=== PATIENT | female | born 1950 ===

== ENCOUNTER 2019-02-18 13:46 | Inpatient (IN) | payer MEDICARE, MEDICAID ==
[2019-02-18 13:46] VITALS: BMI 21.4
--- NOTE | 2019-02-18 14:33 | ED PDOC ---
HPI: General Adult Time Seen by Provider: 02/18/19 14:09 Chief Complaint (Nursing): Back Pain Chief Complaint (Provider): Weakness, Dizziness History Per: Patient, Global Commodity Manager (CORINNEMARY diplomatic interpreter/translator # [id number]) History/Exam Limitations: no limitations Onset/Duration Of Symptoms: Sudden Onset Current Symptoms Are (Timing): Better Additional History Per: Family Additional Complaint(s): 68 year old female with diabetes, anxiety, hypothyroid and seizure presents to the ED with family for an evaluation of weakness, dizziness and diaphoresis. Patient was at a back specialist office, in the waiting room with a sudden onset of symptoms. 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 Otherwise, patient denies fever, chills, chest pain, shortness of breath, abdominal pain, vomiting, diarrhea, nausea or urinary symptoms. PMD: Non H Provider Past Medical History Reviewed: Historical Data, Nursing Documentation, Vital Signs Vital Signs: Last Vital Signs Temp 98.9 F 02/18/19 14:00 Pulse 69 02/18/19 14:00 Resp 16 02/18/19 14:00 BP 138/68 02/18/19 14:00 Pulse Ox 98 02/18/19 14:00 Primary Care Provider: [facility] - Medical History PMH: Anxiety, Arthritis, Back Problems (chronic), Depression (ON MEDICATIONS), Diabetes, Gastritis, HTN, Hypercholesterolemia, Hypothyroidism, Osteoporosis, Seizures (EPILEPSY) - Surgical History Surgical History: No Surg Hx - Family History Family History: States: Unknown Family Hx - Social History Current smoker - smoking cessation education provided: No Alcohol: None Drugs: Denies - Immunization History Hx Tetanus Toxoid Vaccination: No Hx Influenza Vaccination: Yes (2013) Hx Pneumococcal Vaccination: No (per pt 06/02/15) - Home Medications Home Medications: Ambulatory Orders Medication Instructions Recorded Divalproex [Depakote] 250 mg PO Q8 09/13/13 Metformin HCl [Metformin] 1,000 mg PO BID 09/13/13 Alendronate [Fosamax] 70 mg PO TU 04/15/16 Atenolol [Tenormin] 50 mg PO DAILY 02/18/19 Cholecalciferol (Vitamin D3) 2,000 unit PO DAILY 02/18/19 [Vitamin D3] Gabapentin [Neurontin] 100 mg PO Q12 02/18/19 Insulin Aspart, Recombinant 3 unit SC ACLD 02/18/19 [Novolog] Insulin Glargine,Hum.rec.anlog 12 unit SC ACB 02/18/19 [Basaglar Kwikpen U-100] Levothyroxine [Synthroid] 88 mcg PO DAILY 02/18/19 Multivitamin [Multi-Vitamin Daily] 1 tab PO DAILY 02/18/19 Sertraline [Zoloft] 50 mg PO DAILY 02/18/19 amLODIPine [Norvasc] 10 mg PO DAILY 02/18/19 carBAMazepine [Tegretol] 200 mg PO Q8 02/18/19 clonazePAM [Klonopin] 0.5 mg PO HS 02/18/19 - Allergies Allergies/Adverse Reactions: Allergies Allergy/AdvReac Type Severity Reaction Status Date / Time No Known Allergies Allergy Verified 02/18/19 14:00 Review of Systems ROS Statement: Except As Marked, All Systems Reviewed And Found Negative Constitutional: Positive for: Sweats, Weakness Cardiovascular: Negative for: Chest Pain Respiratory: Negative for: Cough, Shortness of Breath Gastrointestinal: Negative for: Nausea, Vomiting, Abdominal Pain, Diarrhea Neurological: Positive for: Dizziness. Negative for: Headache Physical Exam - Reviewed Nursing Documentation Reviewed: Yes Vital Signs Reviewed: Yes - Physical Exam Appears: Positive for: Well, Non-toxic, No Acute Distress Head Exam: Positive for: ATRAUMATIC, NORMAL INSPECTION, NORMOCEPHALIC Skin: Positive for: Normal Color, Warm, DRY Eye Exam: Positive for: EOMI, Normal appearance, PERRL ENT: Positive for: Normal ENT Inspection Neck: Positive for: Normal, Painless ROM, Supple. Negative for: Decreased ROM Cardiovascular/Chest: Positive for: Regular Rate, Rhythm. Negative for: Murmur Respiratory: Positive for: Normal Breath Sounds. Negative for: Respiratory Distress Gastrointestinal/Abdominal: Positive for: Normal Exam, Soft. Negative for: Tenderness Back: Positive for: Normal Inspection. Negative for: L CVA Tenderness, R CVA Tenderness Extremity: Positive for: Normal ROM. Negative for: Tenderness, Pedal Edema, Deformity Neurological/Psych: Positive for: Awake, Alert, Normal Tone, Oriented (x3) - Laboratory Results Result Diagrams: 02/18/19 14:25 02/18/19 14:25 - ECG O2 Sat by Pulse Oximetry: 98 (RA) Pulse Ox Interpretation: Normal Medical Decision Making Medical Decision Making: Time: 1423 Plan: hypoglycemia, rule out infection (uti, pneumonia) causing hypoglycemia. pt denies any recent loss of apetite that should cause the low sugar (pt is getting insulin as prescribed by pcp), so unlcear what the source or reason the pt sugar went so low. pt ate full tray of food here and sugar came up. CMP CBC w/ differential Re-evaluation Initial Accucheck: 48 Accucheck recheck: 122 1542 Upon re-evaluation, patient felt better after she ate. According to her chemistry, her sodium level is low. according to prior records (2013) pt NA also low 120s. 1600 reevaluation of pt. family at bedside. Family state her sugar level goes up and down. Otherwise, patient is calm and cooperative 1719 Dr. [facility]onsal[facility] accepted the patient. (Primary doctor does not admit here) pt agreeable to plan. -- Scribe Attestation: Documented by Abdullahi Hazel, acting as a scribe for Jong Rosario MD Provider Scribe Attestation: All medical record entries made by the Scribe were at my direction and personally dictated by me. I have reviewed the chart and agree that the record accurately reflects my personal performance of the history, physical exam, medical decision making, and the department course for this patient. I have also personally directed, reviewed, and agree with the discharge instructions and disposition. Disposition - Clinical Impression Clinical Impression: Hypoglycemia - Patient ED Disposition Is Patient to be Admitted: Yes Counseled Patient/Family Regarding: Studies Performed, Diagnosis - Disposition Disposition Time: 17:00 Condition: STABLE
[2019-02-18 14:41] LABS: BASO % 0.8 % (0.0-2.0); EOS # 0.2 K/uL (0.0-0.7); EOS % 2.5 % (0.0-4.0); HEMOGLOBIN 12.2 g/dL (12.0-16.0); LYMPH # 2.5 K/uL (1.0-4.3); LYMPH % 40.4 % (20.0-40.0); MEAN CELL VOLUME 89.3 fl (81.0-99.0); MEAN CORPUSCULAR HEMOGLOBIN 29.6 pg (27.0-31.0); MEAN CORPUSCULAR HGB CONC 33.2 g/dL (33.0-37.0); MEAN PLATELET VOLUME 8.8 fl (7.2-11.7); MONO # 0.6 K/uL (0.0-0.8); MONO % 10.2 % (0.0-10.0); NEUT # 2.9 K/uL (1.8-7.0); NEUT % 46.1 % (50.0-75.0); RBC 4.11 Mil/uL (3.80-5.20); RED CELL DISTRIBUTION WIDTH 14.8 % (11.5-14.5); WHITE BLOOD COUNT 6.2 K/uL (4.8-10.8)
[2019-02-18 14:47] LABS: ALB/GLOB RATIO 1.6 (1.0-2.1); ALBUMIN 4.7 g/dL (3.5-5.0); ALT/SGPT 32 U/L (9-52); AST/SGOT 24 U/L (14-36); BLOOD UREA NITROGEN 12 mg/dl (7-17); CALCIUM 8.9 mg/dL (8.4-10.2); GFR NON-AFRICAN AMERICAN > 60
[2019-02-18] MEDS ORDERED: Sodium Chloride 0.9% 1,000 ML IV STA (15:20)
[2019-02-18] MEDS ORDERED: Potassium Chloride 20 mEq ER Tab PO ONE ×2 (17:16→19:34)
--- NOTE | 2019-02-18 17:36 | RAD ---
HISTORY: hypoglycemia COMPARISON: None available TECHNIQUE: Chest, one view. FINDINGS: LUNGS: No focal consolidation. Please note that chest x-ray has limited sensitivity for the detection of pulmonary masses. PLEURA: No significant pleural effusion identified. No definite pneumothorax . CARDIOVASCULAR: Heart size appears within normal limits. Atherosclerotic calcification of the aortic knob. OSSEOUS STRUCTURES: No acute osseous abnormality identified. VISUALIZED UPPER ABDOMEN: Unremarkable. OTHER FINDINGS: None. IMPRESSION: No focal consolidation identified.
[2019-02-18 20:05] LABS: URINE BILIRUBIN NEGATIVE (NEGATIVE); URINE CLARITY CLEAR (Clear); URINE COLOR COLORLESS (YELLOW); URINE GLUCOSE (UA) 150 mg/dL (NEGATIVE); URINE LEUKOCYTE ESTERASE NEG Leu/uL (Negative); URINE PROTEIN 30 mg/dL (NEGATIVE); URINE UROBILINOGEN 0.2-1.0 mg/dL (0.2-1.0)
[2019-02-18 20:19] LABS: URINE BLOOD TRACE (NEGATIVE)
[2019-02-18] MEDS: Insulin Lispro (humaLOG) 100 Units/ml Inj SC SCH (20:53)
[2019-02-18] MEDS: Sodium Chloride 0.9% 1,000 ML IV SCH (23:16)
[2019-02-19] MEDS: Divalproex 250 mg DR(BID formulation) PO SCH ×4 (00:03→16:46)
[2019-02-19 05:49] LABS: ALB/GLOB RATIO 1.5 (1.0-2.1); ALBUMIN 3.6 g/dL (3.5-5.0); ALT/SGPT 22 U/L (9-52); AST/SGOT 22 U/L (14-36); BLOOD UREA NITROGEN 10 mg/dl (7-17); CALCIUM 8.5 mg/dL (8.4-10.2); GFR NON-AFRICAN AMERICAN > 60
[2019-02-19] MEDS: Levothyroxine 88 MCG TAB PO SCH (06:54)
[2019-02-19] MEDS: Insulin Lispro (humaLOG) 100 Units/ml Inj SC SCH ×4 (08:18→21:36)
[2019-02-19] MEDS: Cholecalciferol 1,000 INTLU TAB PO SCH (09:39)
[2019-02-19] MEDS: Sodium Chloride 0.9% 1,000 ML IV SCH ×2 (09:40→16:47)
[2019-02-19] MEDS: Multivitamin With Minerals Tab PO SCH (09:40)
[2019-02-19] MEDS ORDERED: Tolvaptan 15 MG TAB PO ONE (11:36)
[2019-02-19] MEDS ORDERED: Insulin Detemir 100 Units/ml Inj SC SCH (12:15)
[2019-02-20] MEDS: Divalproex 250 mg DR(BID formulation) PO SCH ×3 (01:26→16:17)
--- NOTE | 2019-02-20 04:22 | HP ---
HISTORY OF PRESENT ILLNESS: This is a 68-year-old female with history of multiple medical problems who was brought to the emergency room because of low blood sugar. The patient was examined and evaluated in the emergency room and she also was found to be hyponatremic with sodium of 122. Subsequently, the patient was admitted for further management. The patient denied to have any symptoms suggestive of infection. The patient is compliant to her anti-hyperglycemic medication and she denied skipping meals. REVIEW OF SYSTEMS: Other review of system is positive for back pain. ALLERGIES: NO KNOWN ALLERGY. PAST MEDICAL HISTORY: Hypertension, type 2 diabetes mellitus, degenerative spine disease, radiculopathy, hyponatremia. SOCIAL HISTORY: Denied smoking, EtOH or substance abuse. MEDICATIONS: Reviewed and ordered as per MAR. PHYSICAL EXAMINATION: GENERAL: The patient is in bed, not in any cardiopulmonary distress. VITAL SIGNS: Blood pressure 150/74, temperature 97.6, respiratory rate 18, and pulse 71. HEENT: Pupils equal, reactive to light. Normal-appearing mucosa of the conjunctivae, oropharynx and nasal membrane mucosa. NECK: Supple. No JVD. No carotid bruit. No lymph node. No thyromegaly. CHEST AND LUNGS: Bilateral symmetrical expansion. Good air exchange. No rales, no rhonchi. CARDIOVASCULAR SYSTEM: PMI not localized. S1, S2. No additional sounds. ABDOMEN: Normoactive bowel sounds. No tenderness, no organomegaly. No masses. EXTREMITIES: No cyanosis, no clubbing, no edema. CENTRAL NERVOUS SYSTEM: Alert, awake, oriented x2. No neurological deficit could be appreciated. ASSESSMENT: 1. Hypoglycemia likely secondary to sulfonylurea. 2. 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 3. Hypertension. 4. Degenerative spine disease. PLAN: We will stop IV fluid as sodium did not increase. We are giving normal saline and we will give one dose of Tolvaptan. We will do Accu-Checks with sliding scale insulin coverage. Verna Gonsalves MD
[2019-02-20] MEDS: Levothyroxine 88 MCG TAB PO SCH (06:21)
[2019-02-20 07:26] LABS: ALB/GLOB RATIO 1.5 (1.0-2.1); ALBUMIN 3.9 g/dL (3.5-5.0); ALT/SGPT 28 U/L (9-52); AST/SGOT 23 U/L (14-36); BLOOD UREA NITROGEN 16 mg/dl (7-17); CALCIUM 8.7 mg/dL (8.4-10.2); GFR NON-AFRICAN AMERICAN > 60
[2019-02-20] MEDS: Cholecalciferol 1,000 INTLU TAB PO SCH (08:34)
[2019-02-20] MEDS: Multivitamin With Minerals Tab PO SCH (08:39)
[2019-02-20] MEDS: Insulin Lispro (humaLOG) 100 Units/ml Inj SC SCH ×4 (08:42→21:40)
[2019-02-21] MEDS: Divalproex 250 mg DR(BID formulation) PO SCH ×3 (00:42→17:32)
--- NOTE | 2019-02-21 02:17 | PN ---
DATE: 02/20/2019 DAILY PROGRESS NOTE SUBJECTIVE: The patient is seen today, 02/20/2019. Her blood sugar went down to 20 last night. The patient is currently only on sliding scale with no basal insulin. PHYSICAL EXAMINATION: VITAL SIGNS: Blood pressure is 159/67, temperature 98.2, respiratory rate 18, and pulse 71. HEENT: Pupils are equal and reactive to light. Normal-appearing mucosa of the conjunctivae, oropharynx, and nasal membrane mucosa. NECK: Supple. No JVD. No carotid bruits. No lymph node. No thyromegaly. CHEST AND LUNGS: Bilateral symmetrical expansion. Good air exchange. No rales. No rhonchi. CARDIOVASCULAR SYSTEM: PMI not localized. S1 and S2. No additional sounds. ABDOMEN: Normoactive bowel sounds. No tenderness. No organomegaly. No masses. EXTREMITIES: No cyanosis. No clubbing. No edema. CENTRAL NERVOUS SYSTEM: Alert, awake, and oriented x2. No neurological deficits could be appreciated. ASSESSMENT: 1. Hypoglycemia. 2. Hyponatremia. 3. Type 2 diabetes mellitus. 4. Hypertension. PLAN: Continue current medications. Monitor blood sugar. Monitor also sodium, which went up to 130 after one pill of tolvaptan. Verna Gonsalves MD
[2019-02-21] MEDS: Levothyroxine 88 MCG TAB PO SCH (06:17)
[2019-02-21] MEDS: Insulin Lispro (humaLOG) 100 Units/ml Inj SC SCH ×4 (06:30→21:30)
[2019-02-21 07:01] LABS: BLOOD UREA NITROGEN 21 mg/dl (7-17); CALCIUM 8.9 mg/dL (8.4-10.2); GFR NON-AFRICAN AMERICAN > 60
[2019-02-21] MEDS: Multivitamin With Minerals Tab PO SCH (09:01)
[2019-02-21] MEDS: Cholecalciferol 1,000 INTLU TAB PO SCH (09:01)
[2019-02-22] MEDS: Divalproex 250 mg DR(BID formulation) PO SCH ×3 (00:45→17:35)
[2019-02-22 06:47] LABS: ALB/GLOB RATIO 1.6 (1.0-2.1); ALBUMIN 3.9 g/dL (3.5-5.0); ALT/SGPT 31 U/L (9-52); AST/SGOT 26 U/L (14-36); BLOOD UREA NITROGEN 17 mg/dl (7-17); CALCIUM 8.5 mg/dL (8.4-10.2); GFR NON-AFRICAN AMERICAN > 60
[2019-02-22] MEDS: Levothyroxine 88 MCG TAB PO SCH (06:47)
[2019-02-22] MEDS: Insulin Lispro (humaLOG) 100 Units/ml Inj SC SCH ×5 (06:49→21:20)
--- NOTE | 2019-02-22 08:39 | CON ---
DATE: 02/21/2019 ENDOCRINOLOGY CONSULT LOCATION: Room 401. HISTORY OF PRESENT ILLNESS: This is a 68-year-old female with known history of type 2 insulin-requiring diabetes and hypertension, presenting here with symptomatic hypoglycemia with associated progressively worsening dizziness and lightheadedness and generalized body weakness and is now being referred for diabetic evaluation and management. Over the past 48 hours, she actually has had extremes of glycemic fluctuations in the hospital presenting with glucose levels below 20 and developing supervening hyperglycemic accelerations and glucose values over 400 mg/dL. PAST MEDICAL HISTORY: As mentioned above, history of type 2 insulin-requiring diabetes, on a combination of Basaglar given as 12 units at breakfast time with NovoLog given as 3 units at lunch and dinner time daily. She also was taking metformin at 1 gram b.i.d. History of hypothyroidism, on levothyroxine, taken as 88 mcg daily. History of hypertension, on a combination of atenolol and amlodipine medications as given. History of generalized anxiety and depression, on psychotropic medications as noted with also concomitant history of generalized seizures, on Tegretol therapy as noted. History of lumbar disc disease and severe lower back pain with radiculopathy. History of chronic gastritis and irritable bowel syndrome, history of diffuse osteoarthritis with underlying osteoporosis, currently on alendronate therapy as given once a week. FAMILY HISTORY: Positive for diabetes and hypertension. SOCIAL HISTORY: The patient has a supportive family. No known substance use. REVIEW OF SYSTEMS: Admits to generalized body weakness with progressively worsening dizziness and lightheadedness, worse on the day of admission, and she actually appeared at an orthopedic doctor's office when she developed symptomatic hypoglycemia with the glucose level of 48 mg/dL as noted. Also admits to easy fatigability and tiredness with suboptimal energy level and also bifrontal headaches with visual blurring. No chest pains or palpitations or PND. Her oral intake has been variable with suboptimal meal portions as noted. No recent fluctuations in the bowel and/or urinary patterns. PHYSICAL EXAMINATION: GENERAL: Average-built female in no apparent distress. VITAL SIGNS: Blood pressure of 140/80, pulse of 70 beats per minute and regular, temperature 98, and respirations 20. Height is 5 feet and weight is 140 pounds. HEENT: Head normocephalic. Eyes, anicteric with pink conjunctivae. Funduscopy is not possible at this time. Ears, nose, and throat, otherwise, normal. NECK: Supple. Thyroid gland is normal in size. No carotid bruits or any cervical adenopathy. CARDIOPULMONARY: Some adynamic precordium. S1 and S2, rapid and regular. LUNGS: Clear to auscultation. ABDOMEN: Flat and soft with positive bowel sounds. EXTREMITIES: No peripheral edema. Pulses are +2 bilaterally. LABORATORY DATA: Her glucose levels today have ranged from 86 to 259 and 479 mg/dL as noted. Her chemistry showed a BUN of 21, sodium 122, potassium 4.4, chloride 83, CO2 of 22, glucose 456, and creatinine 0.5. Her hemoglobin A1c is 8.8% and the TSH was 1.95. ASSESSMENT AND PLAN: This is a 68-year-old female with recent uncontrolled type 2 insulin-requiring diabetes, presenting here with symptomatic hypoglycemia and associated neuroglycopenic and hyper-adrenergic manifestations of the same, most likely related to subtherapeutic insulin regimen with concomitant variable oral intake and suboptimal meal portions over the past week or so prior to admission. She also has euvolemic hyponatremia, the etiology of which has to be ascertained as to whether we are dealing with the syndrome of inappropriate antidiuretic hormone secretion, once again of uncertain etiology as the patient is not taking any diuretic therapy nor has any central or peripheral lesions or disorders contributing to the aforementioned. We have to exclude the possibility of a remote condition of adrenal insufficiency or hypoadrenalism, which is also an autoimmune condition as the patient currently has hypothyroidism which most likely is related to underlying autoimmune thyroiditis. We will obtain serial chemistries and supplement accordingly needed. PLAN OF MANAGEMENT: We will obtain a serum cortisol and ACTH level tomorrow morning and repeat chemistries accordingly. We will also do a comprehensive thyroid hormone profile with a total T4 and TSH as ordered. We will modify her coverage scale with a very low-dose algorithm for coverage only above 250 as ordered and determine the need to start her back on a lower dosing of a basal and bolus insulin regimen as indicated versus a combination of oral hypoglycemic therapy as indicated. We will obtain serial chemistries and supplement accordingly as needed. We will follow and advised accordingly. Valentina Jensen MD [facility] # [id number]
[2019-02-22] MEDS: Cholecalciferol 1,000 INTLU TAB PO SCH (08:55)
[2019-02-22] MEDS: Multivitamin With Minerals Tab PO SCH (08:58)
--- NOTE | 2019-02-22 12:45 | CP.PCM.CON ---
History of Present Illness - History of Present Illness History of Present Illness: pt is seen and examined, full consult is dictated #[id number] 1. S/p hypoglycemia 2. HTN 3. DM 4. Depression 5. seizers 6. Hyponatremia, most likley sec to SIADH sec to meds add nacl 1 gm tab po tid restrict fluids to 1lit/day restart meds/ insulin for hyperglycemia Past Patient History - Infectious Disease Hx of Infectious Diseases: None - Past Medical History & Family History Past Medical History?: Yes - Past Social History Smoking Status: Never Smoked - CARDIAC Hx Hypercholesterolemia: Yes Hx Hypertension: Yes - PULMONARY Hx Respiratory Disorders: No - NEUROLOGICAL Hx Seizures: Yes (EPILEPSY) - HEENT Hx HEENT Problems: No - RENAL Hx Chronic Kidney Disease: No - ENDOCRINE/METABOLIC Hx Hypothyroidism: Yes - HEMATOLOGICAL/ONCOLOGICAL Hx Blood Disorders: No - INTEGUMENTARY Hx Dermatological Problems: No - MUSCULOSKELETAL/RHEUMATOLOGICAL Hx Arthritis: Yes Hx Back Pain: Yes Hx Falls: No Hx Osteoporosis: Yes - GASTROINTESTINAL Hx Gastritis: Yes - GENITOURINARY/GYNECOLOGICAL Hx Genitourinary Disorders: No - PSYCHIATRIC Hx Anxiety: Yes Hx Depression: Yes (ON MEDICATIONS) Hx Substance Use: No - SURGICAL HISTORY Hx Surgeries: No - ANESTHESIA Hx Anesthesia: Yes Hx Anesthesia Reactions: No Hx Malignant Hyperthermia: No Meds Allergies/Adverse Reactions: Allergies Allergy/AdvReac Type Severity Reaction Status Date / Time No Known Allergies Allergy Verified 02/18/19 14:00 - Medications Medications: Current Medications Acetaminophen (Tylenol 325mg Tab) 650 mg PO Q6 PRN PRN Reason: Pain, moderate (4-7) Last Admin: 02/22/19 11:16 Dose: 650 mg Alendronate Sodium (Fosamax) 70 mg PO TU [facility] Amlodipine Besylate (Norvasc) 10 mg PO DAILY [facility] Last Admin: 02/22/19 08:55 Dose: 10 mg Atenolol (Tenormin) 50 mg PO DAILY [facility] Last Admin: 02/22/19 08:56 Dose: 50 mg Carbamazepine (Tegretol) 200 mg PO Q8 [facility] Last Admin: 02/22/19 08:56 Dose: 200 mg Cholecalciferol (Vitamin D) 2,000 intlu PO DAILY [facility] Last Admin: 02/22/19 08:55 Dose: 2,000 intlu Clonazepam (Klonopin) 0.5 mg PO HS [facility] Last Admin: 02/21/19 21:29 Dose: 0.5 mg Divalproex Sodium (Depakote Dr(*Bid*)) 250 mg PO Q8 [facility] Last Admin: 02/22/19 08:54 Dose: 250 mg Gabapentin (Neurontin) 200 mg PO Q12 [facility] Last Admin: 02/22/19 08:57 Dose: 200 mg Insulin Human Lispro (Humalog) [address] [facility]; Protocol Last Admin: 02/22/19 11:04 Dose: 5 units Levothyroxine Sodium (Synthroid) 88 mcg PO DAILY@0630 [facility] Last Admin: 02/22/19 06:47 Dose: 88 mcg Multivitamins/Minerals (Therapeutic-M Tab) 1 tab PO DAILY [facility] Last Admin: 02/22/19 08:58 Dose: 1 tab Sertraline HCl (Zoloft) 50 mg PO DAILY [facility] Last Admin: 02/22/19 08:58 Dose: 50 mg Results - Vital Signs Recent Vital Signs: Last Vital Signs Temp 97.9 F 02/22/19 11:54 Pulse 76 02/22/19 11:54 Resp 18 02/22/19 11:54 BP 131/68 02/22/19 11:54 Pulse Ox 99 02/22/19 11:54 - Labs Result Diagrams: 02/18/19 14:25 02/22/19 05:45 Labs: Laboratory Results - last 24 hr 02/21/19 02/21/19 02/21/19 16:02 19:05 19:05 Sodium Potassium Chloride Carbon Dioxide Anion Gap BUN Creatinine Est GFR ( Amer) Est GFR (Non-Af Amer) POC Glucose (mg/dL) 259 H Random Glucose Serum Osmolality 274 Uric Acid 4.4 Calcium Magnesium Total Bilirubin AST ALT Alkaline Phosphatase Total Protein Albumin Globulin Albumin/Globulin Ratio Thyroxine (T4) TSH 3rd Generation Urine Osmolality Ur Random Sodium Ur Random Potassium 02/21/19 02/21/19 02/22/19 21:14 22:30 05:45 Sodium 123 L Potassium 4.6 Chloride 87 L Carbon Dioxide 19 L Anion Gap 22 H BUN 17 Creatinine 0.5 L Est GFR ( Amer) > 60 Est GFR (Non-Af Amer) > 60 POC Glucose (mg/dL) 86 Random Glucose 478 H* Serum Osmolality Uric Acid Calcium 8.5 Magnesium 1.5 L Total Bilirubin 0.4 AST 26 ALT 31 Alkaline Phosphatase 78 Total Protein 6.2 L Albumin 3.9 Globulin 2.4 Albumin/Globulin Ratio 1.6 Thyroxine (T4) 6.47 TSH 3rd Generation 1.93 Urine Osmolality 512 Ur Random Sodium 54 Ur Random Potassium 26.8 02/22/19 02/22/19 05:48 11:02 Sodium Potassium Chloride Carbon Dioxide Anion Gap BUN Creatinine Est GFR ( Amer) Est GFR (Non-Af Amer) POC Glucose (mg/dL) > 500 H* 481 H* Random Glucose Serum Osmolality Uric Acid Calcium Magnesium Total Bilirubin AST ALT Alkaline Phosphatase Total Protein Albumin Globulin Albumin/Globulin Ratio Thyroxine (T4) TSH 3rd Generation Urine Osmolality Ur Random Sodium Ur Random Potassium
--- NOTE | 2019-02-22 20:34 | PN ---
DATE: 02/22/2019 ENDOCRINOLOGY FOLLOWUP NOTE LOCATION: Room 401. SUBJECTIVE: This is a 68-year-old female with recent uncontrolled type 2 insulin-requiring diabetes presenting here with symptomatic hypoglycemia and now developing marked hyperglycemic accelerations overnight as noted. LABORATORY DATA: Her glucose levels have ranged from 481 to over 500 mg/dL today as noted. Her chemistry showed a BUN of 17, sodium 123, potassium 4.6, chloride 87, CO2 of 19, glucose 478 and creatinine of 0.5. Her thyroid studies showed T4 of 6.47 with a TSH of 1.93. ASSESSMENT: This is a 68-year-old female with uncontrolled and decompensated type 2 insulin-requiring diabetes presenting here with symptomatic hypoglycemia and associated neuroglycopenic and hyper-adrenergic manifestations of the same. At this time, she has developed overnight hyperglycemic accelerations as expected with the withholding of the basal and bolus insulin regimen on admission as noted thereof. PLAN OF MANAGEMENT: We will modify and resume her basal and bolus insulin regimen to optimize metabolic control, detailed orders have been given. We will add Humalog given as 10 units t.i.d. before meals to start today as ordered. We will also modify the coverage scale to obviate hypoglycemia and detailed orders have been given and also we will be using Humalog insulin which is rapid acting with short half life as noted. We will also add basal insulin with Levemir to be given as 20 units subcu at bedtime daily to start tonight. We will titrate incrementally as indicated to optimize metabolic control. We will modify the coverage scale accordingly to obviate hypoglycemia. We will follow and advise accordingly. Valentina Jensen MD
[2019-02-22] MEDS ORDERED: Insulin Detemir 100 Units/ml Inj SC SCH (22:00)
[2019-02-23 00:07] VITALS: RESP 20
[2019-02-23] MEDS: Divalproex 250 mg DR(BID formulation) PO SCH ×2 (00:26→08:28)
--- NOTE | 2019-02-23 01:34 | PN ---
DATE: 02/22/2019 DAILY PROGRESS NOTE SUBJECTIVE: The patient is seen today on 02/22/2019. She is not in cardiopulmonary distress. PHYSICAL EXAMINATION: VITAL SIGNS: Blood pressure 131/68, temperature 97.9, respiratory rate 18, and pulse 76. HEENT: Pupils are equal and reactive to light. Normal-appearing mucosa of the conjunctivae, oropharynx, and nasal membrane mucosa. NECK: Supple. No JVD. No carotid bruit. No lymph node. No thyromegaly. CHEST AND LUNGS: Bilateral symmetrical expansion. Good air exchange. No rales. No rhonchi. CARDIOVASCULAR SYSTEM: PMI not localized. S1 and S2. No additional sounds. ABDOMEN: Normoactive bowel sounds. No tenderness. No organomegaly. No masses. EXTREMITIES: No cyanosis. No clubbing. No edema. CENTRAL NERVOUS SYSTEM: Alert, awake, and oriented x2. No neurological deficits could be appreciated. ASSESSMENT: 1. Hyponatremia. 2. Hypoglycemia. 3. Type 2 diabetes mellitus. 4. Hypertension. 5. Degenerative spine disease. PLAN: Follow recommendations of automobile body customizer and hand tufter. Continue current insulin and resume metformin. Physical therapy. Verna Gonsalves MD
[2019-02-23] MEDS: Levothyroxine 88 MCG TAB PO SCH (06:01)
[2019-02-23 06:11] LABS: BLOOD UREA NITROGEN 13 mg/dl (7-17); CALCIUM 8.8 mg/dL (8.4-10.2); GFR NON-AFRICAN AMERICAN > 60
[2019-02-23] MEDS: Insulin Lispro (humaLOG) 100 Units/ml Inj SC SCH ×4 (07:30→10:59)
[2019-02-23 08:22] VITALS: O2SAT 100
--- NOTE | 2019-02-23 08:22 | CON ---
DATE: 02/22/2019 LOCATION: The patient is located in room 401, bed 2. REQUESTED BY: Verna Gonsalves MD REASON FOR CONSULTATION: Hyponatremia, for further evaluation. HISTORY: Mrs. Celsa Swanson is a 68-year-old elderly female with past medical history significant for hypertension for 4 months, diabetes for about 15 years, hyperlipidemia, hypothyroidism, seizure disorder, who was found to be hypoglycemic in Dr. Bardales's waiting room with a sudden onset of like weakness, dizziness, diaphoresis, and the patient was found to have hypoglycemic episode, and subsequently, the patient was sent to the emergency room and admitted for symptomatic hypoglycemia. The patient denied any fever, chills. Denies any chest pain, palpitation. Denies any shortness of breath. Denies any nausea, vomiting, diarrhea, or urinary symptoms on admission. PAST MEDICAL HISTORY: Significant for anxiety, arthritis, chronic back pain, depression, diabetes, hypertension, hyperlipidemia, hypothyroidism, osteoporosis and seizures. PAST SURGICAL HISTORY: No history of surgeries. ALLERGIES: NO KNOWN DRUG ALLERGIES. SOCIAL HISTORY: No smoking, no alcohol, no drugs. PERSONAL HISTORY: and she has 2 children. FAMILY HISTORY: Both parents . CURRENT MEDICATIONS: Her current medications includes as follows: Depakote DR 250 mg p.o. every 8 hours, Fosamax 70 mg p.o. once a week, metformin 1000 mg p.o. b.i.d., insulin Lispro 10 units subcu a.c., and Klonopin 0.5 mg p.o. at bedtime, Levemir 20 units subcu at bedtime, Neurontin 200 mg p.o. every 12 hours, amlodipine 10 mg p.o. daily, sodium chloride tablets started this morning 1 g p.o. t.i.d., Synthroid 88 mcg p.o. daily, Tegretol 200 mg p.o. every 8 hours, atenolol 50 mg p.o. daily, and multivitamin one tablet daily, Tylenol, vitamin D 2000 international units p.o. daily, Zoloft 50 mg p.o. daily. REVIEW OF SYSTEMS: Significant for weakness, diaphoresis, and hypoglycemia. All other review of systems are reviewed and are negative. Her last seizure was about 3 years ago. PHYSICAL EXAMINATION: VITAL SIGNS: As follows: Blood pressure this morning 133/68, pulse 87, respirations 18, temperature 97.7, saturation 97%. Height 5 feet. Weight is 140 pounds. GENERAL: Mrs. Celsa Swanson is a 68-year-old thin built female, looks appropriate for age, not in any acute distress, moderately built, moderately nourished. HEENT: Pupils are normal and reactive to light and accommodation. Conjunctivae pink. Sclerae anicteric. Tongue is moist. Trachea is midline. LUNGS: Symmetric on both sides. Bilateral breath sounds present. Clear to auscultation. CARDIOVASCULAR SYSTEM: [place] at the fifth intercostal space, midclavicular line. S1, S2 audible. No murmur or gallop. ABDOMEN: Normal in appearance. Soft, tympanitic. No guarding. No rigidity. No hepatosplenomegaly. CENTRAL NERVOUS SYSTEM: The patient is alert, awake, oriented x3. Nonfocal neuro examination. Cranial nerves II through XII grossly intact. Sensory and motor system is within normal limits. EXTREMITIES: No cyanosis, no clubbing, and no edema. LABORATORY DATA: Include as follows: On admission, as of 02/18/2019: WBC 6.2, hemoglobin 12.2, hematocrit is 36.7, and platelets 279. Sodium 122, potassium 3.4, chloride 82, CO2 of 21, BUN 12, creatinine 0.5, and glucose 122. Calcium 8.9. Total bili 0.3, AST 24, ALT 32, alkaline phosphatase 78, total protein 7.6, albumin is 4.7. Urinalysis: Colorless, clear, pH of 6, specific gravity 1.005, protein 30, glucose 150, ketones trace, blood trace, nitrites negative, bilirubin negative, urobilinogen 0.2 to 1.0, leukocyte esterase negative, rbc 3, wbc 1. As of 02/19/2019: Serum sodium is 124. As of 02/20/2019: Serum sodium is 130 and BUN and creatinine 16 and 0.5 and glucose is 203. As of 02/21/2019: Sodium 122, potassium is 4.4, chloride 83, CO2 of 22, BUN 21, creatinine 0.5, glucose 456, calcium is 8.9. Corrected sodium is about 128. Other laboratory data, serum osmolality is 274 and uric acid is 4.4. Other laboratory data, TSH is 1.93 and serum cortisol is 13.4. Urine osmolality is 512. Urine sodium is 54, urine potassium is 26.8. Other laboratory data as of 02/22/2019: Sodium is 123, potassium is 4.6, chloride is 87, CO2 of 19, BUN 17, creatinine 0.5, glucose is more than 500. Other laboratory reports: Chest x-ray as of 02/18/2019: No focal consolidation identified. ASSESSMENT: In summary, Mrs. Celsa Swanson is a 68-year-old elderly female with history of hypertension, diabetes, hyperlipidemia, hypothyroidism, seizure, depression, anxiety, was admitted with symptomatic hypoglycemia, renal consult requested for hyponatremia. 1. Hyponatremia, most likely secondary to syndrome of inappropriate antidiuretic hormone secretion, secondary to multifactorial drugs, seizure medication, antidepressants, and antianxiety medications. 2. Hypertension. Blood pressure is stable. 3. Uncontrolled diabetes. 4. Seizures. PLAN: Continue her current medications. Restarted her insulin and oral hypoglycemic agents. We will start sodium chloride tablet 1 g p.o. every 8 hours and continue to monitor BMP. Continue to monitor sugars. Continue Synthroid. We will follow up with you. Check BMP in a.m. daily. Thank you for allowing me to participate in your patient's care. Case discussed with nurse practitioner, Marie, in rounds. Zak Oliver MD
[2019-02-23] MEDS: Cholecalciferol 1,000 INTLU TAB PO SCH (08:33)
[2019-02-23] MEDS: Multivitamin With Minerals Tab PO SCH (08:33)
--- NOTE | 2019-02-23 10:07 | CP.PCM.PN ---
Subjective - Date & Time of Evaluation Date of Evaluation: 02/23/19 Time of Evaluation: 10:06 - Subjective Subjective: pt is seen and examined, follow up consult is dictated #[id number] will give tolvaptan 30 mg pox 1 dose may discharged home if serum na is stable this afternoon Objective - Vital Signs/Intake and Output Vital Signs (last 24 hours): Temp Pulse Resp BP Pulse Ox 97.9 F 80 20 154/59 H 100 02/23/19 08:21 02/23/19 08:32 02/23/19 08:21 02/23/19 08:32 02/23/19 08:21 - Medications Medications: Current Medications Acetaminophen (Tylenol 325mg Tab) 650 mg PO Q6 PRN PRN Reason: Pain, moderate (4-7) Last Admin: 02/22/19 11:16 Dose: 650 mg Alendronate Sodium (Fosamax) 70 mg PO TU [facility] [place] Amlodipine Besylate (Norvasc) 10 mg PO DAILY [facility] [place] Last Admin: 02/23/19 08:30 Dose: 10 mg Atenolol (Tenormin) 50 mg PO DAILY [facility] [place] Last Admin: 02/23/19 08:32 Dose: 50 mg Carbamazepine (Tegretol) 200 mg PO Q8 [facility] [place] Last Admin: 02/23/19 08:31 Dose: 200 mg Cholecalciferol (Vitamin D) 2,000 intlu PO DAILY [facility] Last Admin: 02/23/19 08:33 Dose: 2,000 intlu Clonazepam (Klonopin) 0.5 mg PO [facility] Last Admin: 02/22/19 21:20 Dose: 0.5 mg Divalproex Sodium (Depakote Dr(*Bid*)) 250 mg PO Q8 [facility] [place] Last Admin: 02/23/19 08:28 Dose: 250 mg Gabapentin (Neurontin) 200 mg PO Q12 [facility] [place] Last Admin: 02/23/19 08:30 Dose: 200 mg Insulin Detemir (Levemir) 20 units SC HS [facility] Last Admin: 02/22/19 21:21 Dose: 20 u Insulin Human Lispro (Humalog) 10 units SC AC [facility] Last Admin: 02/23/19 08:29 Dose: 10 units Insulin Human Lispro (Humalog) 0 units SC ACHS [facility]; Protocol Last Admin: 02/22/19 21:20 Dose: Not Given Levothyroxine Sodium (Synthroid) 88 mcg PO DAILY@0630 [facility] [place] Last Admin: 02/23/19 06:01 Dose: 88 mcg Metformin HCl (Glucophage) 1,000 mg PO BIDWM [facility] Last Admin: 02/23/19 08:29 Dose: 1,000 mg Multivitamins/Minerals (Therapeutic-M Tab) 1 tab PO DAILY [facility] Last Admin: 02/23/19 08:33 Dose: 1 tab Sertraline HCl (Zoloft) 50 mg PO DAILY [facility] Last Admin: 02/23/19 08:34 Dose: 50 mg Sodium Chloride (Sodium Chloride Tab) 1 gm PO TID [facility] Last Admin: 02/23/19 08:31 Dose: 1 gm Tolvaptan (Samsca) 30 mg PO ONCE ONE Stop: 02/23/19 10:06 - Labs Labs: 02/18/19 14:25 02/23/19 04:30
[2019-02-23 12:26] VITALS: BP 159/73; PULSE 69; TEMP 97.8
--- NOTE | 2019-02-23 19:01 | PN ---
DATE: 02/23/2019 ENDOCRINOLOGY FOLLOWUP NOTE LOCATION: In room 401. SUBJECTIVE: This is a 68-year-old female with recent uncontrolled type 2 insulin-requiring diabetes, now being followed closely for metabolic management. Her glycemic levels are fluctuating, but improved and the glucose values today have ranged from 94-177 mg/dL. The glucose levels at lunch time were 368 as the held the morning Humalog insulin as noted. Her glucose levels overnight were also fluctuating with the variability of her oral intake and with almost no dinner part taken last night as per the patient. Her glucose levels at bedtime were 211, but at 02:00 a.m. dropped to 32 mg/dL with a repeat level of 94. Her chemistry showed a BUN of 13, sodium 125, potassium 3.7, chloride 88, CO2 of 23, glucose 78, and creatinine 0.4. ASSESSMENT: This is a 68-year-old female with uncontrolled and decompensated type 2 insulin-requiring diabetes with extremes of glycemic fluctuations related to the variability of her oral intake as noted thereof. PLAN OF MANAGEMENT: As discussed lengthily with the patient at bedside. We will definitely lower her basal and bolus insulin regimen to adjust to the suboptimal meal portions as noted and given by the patient. We will lower her Levemir to 12 units subcu at bedtime daily to start tonight. We will also lower the Humalog to 6 units t.i.d. before meals to start today as ordered. We will obtain serial chemistries and supplement accordingly needed. We will follow with you. Valentina Jensen MD
[2019-02-23] MEDS ORDERED: ALENDRONATE 70 MG TAB PO SCH (20:24)
--- NOTE | 2019-02-24 10:22 | DS ---
REASON FOR ADMISSION: This is a 68-year-old female with history of multiple medical problems who was admitted for hypoglycemia and hyponatremia. COURSE OF HOSPITALIZATION: The patient was admitted to telemetry floor, and she had an endocrinology consult done by Dr. Valentnia Jensen and nephrology consult done by Dr. Oliver. The patient's sodium was fluctuating because she was given one dose of tolvaptan. On the second day of admission, sodium went up to 130 and then it went down again to 122. Dr. Jensen adjusted the medication, the insulin, and the patient did not wait for completion of therapy, and she signed against medical advice understanding all the consequences. The patient states that she has her own private doctor and will make the referral to a different specialist as needed. FINAL DIAGNOSES: 1. Hypoglycemia. 2. Hyponatremia. 3. Type 2 diabetes mellitus. 4. Hypertension. 5. Degenerative spine disease. 6. Osteoarthritis. Verna Gonsalves MD
--- NOTE | 2019-02-25 08:30 | PN ---
DATE: 02/23/2019 FOLLOWUP RENAL CONSULTATION LOCATION: The patient is located in room 401, bed 2. REQUESTED BY: Verna Gonsalves MD REASON FOR FOLLOWUP: Hyponatremia. SUBJECTIVE: Mrs. Celsa Swanson is a 68-year-old elderly female with a past medical history significant for longstanding hypertension, diabetes, seizure disorder, hypothyroidism, hyperlipidemia, anxiety, depression was admitted with symptomatic hypoglycemia in the physician's office and renal followup is requested for hyponatremia. The patient is feeling better. Denies any chest pain, palpitation. Denies any fever or cough. No abdominal pain. No nausea, vomiting, or diarrhea. The patient is ambulating without any difficulty. PHYSICAL EXAMINATION: VITAL SIGNS: This morning; blood pressure 154/59, pulse 80, respirations 20, temperature 97.9, and saturation 100%. Height 5 feet. Weight is 140 pounds. GENERAL: Mrs. Celsa Swanson is a 68-year-old elderly female, moderately built, moderately nourished, thin built, not in distress. HEENT: Pupils are normal and reactive to light and accommodation. Conjunctivae are pink. Sclerae are anicteric. Tongue is moist. Trachea is midline. LUNGS: Symmetric on both sides. Bilateral breath sounds present. Clear to auscultation. CARDIOVASCULAR SYSTEM: [place] at the fifth intercostal space, midclavicular line. S1, S2 audible. No murmur. No gallop. ABDOMEN: Normal in appearance. Soft, tympanitic. No guarding. No rigidity. No hepatosplenomegaly. CENTRAL NERVOUS SYSTEM: The patient is alert, awake, and oriented x3. Nonfocal neuro examination. Cranial nerves II through XII grossly intact. Sensory and motor system is within normal limits. EXTREMITIES: No cyanosis, no clubbing, and no edema. CURRENT MEDICATIONS: Her current medications includes as follows; Fosamax 70 mg p.o. every Friday, amlodipine 10 mg daily, atenolol 50 mg p.o. daily, Tegretol 200 mg p.o. every 8 hours, vitamin D 2000 units daily, Klonopin 0.5 mg p.o. at bedtime, Depakote 250 mg p.o. every 8 hours, gabapentin 200 mg p.o. every 12 hours, Levemir 20 units subcu at bedtime, Synthroid 88 mcg p.o. daily, metformin 1000 mg p.o. b.i.d., multivitamin one tablet daily, Zoloft 50 mg p.o. daily, sodium chloride 1 g p.o. t.i.d., Tolvaptan 30 mg p.o. x1 dose given this morning. LABORATORY DATA: Include as follows; sodium 125, potassium 3.7, chloride 88, CO2 of 23, BUN 13, creatinine 0.4, and glucose 177. Calcium 8.8. ASSESSMENT: In summary, Mrs. Celsa Swanson is a 68-year-old elderly female with history of hypertension, diabetes, hypothyroidism, hyperlipidemia, depression, anxiety was admitted with symptomatic hypoglycemia. 1. Hyponatremia, most likely secondary to syndrome of inappropriate antidiuretic hormone secretion, secondary to drug induce. 2. Hypertension. 3. Status post symptomatic hypoglycemia. 4. Diabetes, sugars are under control now. 5. Hypothyroidism. 6. Depression and anxiety. PLAN: Continue her current medications and we will give Tolvaptan 30 mg p.o. x1 dose and continue sodium chloride tablet 1 g p.o. t.i.d. If serum sodium remains stable this afternoon or this evening, the patient can be discharged from the renal standpoint. Thank you for allowing me to participate in your patient's care. Zak Oliver MD
[2019-03-02 16:43] LABS: TSI <89 % baseline (<140)
== END 2019-02-23 13:33 | disposition left against medical advice (07) | DRG 644 ==
LOC: H.ER 13:46 → UNDOADMOB 17:18 → H.ERHOLD 17:18 → INTOOBSV 17:18 → OBSVTOIN 17:18 → H.TEL 21:25 → H.ERHOLD 21:25 → H.TEL 02-20 12:58 → H.ERHOLD 02-20 12:58 → OBSVTOIN 02-20 12:58
PROVIDERS: ADMIT Internal Medicine; ATTEND Internal Medicine
DX: E22.2 Syndrome of inappropriate secretion of antidiuretic hormone (principal); E27.40 Unspecified adrenocortical insufficiency; E11.649 Type 2 diabetes mellitus with hypoglycemia without coma; E06.3 Autoimmune thyroiditis; E78.00 Pure hypercholesterolemia, unspecified; E78.5 Hyperlipidemia, unspecified; F32.9 Major depressive disorder, single episode, unspecified; F41.1 Generalized anxiety disorder; G40.909 Epilepsy, unspecified, not intractable, without status epilepticus; I10 Essential (primary) hypertension; K58.9 Irritable bowel syndrome, unspecified; M81.0 Age-related osteoporosis without current pathological fracture; Z79.4 Long term (current) use of insulin; Z79.83 Long term (current) use of bisphosphonates; G89.29 Other chronic pain; K29.50 Unspecified chronic gastritis without bleeding; M19.90 Unspecified osteoarthritis, unspecified site; M54.5 Low back pain; M51.9 Unspecified thoracic, thoracolumbar and lumbosacral intervertebral disc disorder; M54.10 Radiculopathy, site unspecified; Z79.84 Long term (current) use of oral hypoglycemic drugs; Z79.899 Other long term (current) drug therapy; E11.65 Type 2 diabetes mellitus with hyperglycemia; G31.89 Other specified degenerative diseases of nervous system